=== PATIENT | male | born 1960 | race Caucasian/White ===

== ENCOUNTER 2021-07-08 11:43 | Emergency (ER) | payer BC ==
[2021-07-09 16:52] LABS: SARS-CoV-2 PCR by NAA Not Detected (NotDetected)
== END 2021-07-08 13:22 | disposition home or self-care (01) ==
LOC: MADERS 11:43
DX: J02.9 Acute pharyngitis, unspecified (principal); J30.2 Other seasonal allergic rhinitis; F17.220 Nicotine dependence, chewing tobacco, uncomplicated; Z79.899 Other long term (current) drug therapy
CPT/HCPCS: 87081; 87430; 99283; U0003; U0005

== ENCOUNTER 2021-10-16 17:33 | Emergency (ER) | payer BC, SELFPAY ==
[2021-10-16] MEDS ORDERED: predniSONE 20 MG TAB ONE (18:32)
[2021-10-16] MEDS ORDERED: guaiFENesin/Codeine Phosphate 100 mg/10 mg 5 ml UD Cup ONE (18:32)
[2021-10-16] MEDS ORDERED: Azithromycin 250 MG TAB ONE (18:32)
[2021-10-17 18:30] LABS: SARS-CoV-2 PCR by NAA DETECTED (NotDetected)
== END 2021-10-16 19:19 | disposition home or self-care (01) ==
LOC: MADERS 17:33
DX: U07.1 COVID-19 (principal); J44.1 Chronic obstructive pulmonary disease with (acute) exacerbation; F17.220 Nicotine dependence, chewing tobacco, uncomplicated
CPT/HCPCS: 71045; J7512; U0003; U0005

== ENCOUNTER 2022-10-12 13:14 | Emergency (ER) | payer SELFPAY ==
[2022-10-12] MEDS ORDERED: Dexamethasone 4 MG TAB ONE (13:47)
== END 2022-10-12 14:19 | disposition home or self-care (01) ==
LOC: MADERS 13:14
DX: J06.9 Acute upper respiratory infection, unspecified (principal); Z20.822 Contact with and (suspected) exposure to COVID-19; Z87.891 Personal history of nicotine dependence
CPT/HCPCS: 87081; 87430; 87804; 99283; J8540; U0003; U0005

== ENCOUNTER 2023-08-11 14:22 | Emergency (ER) | payer BC ==
[2023-08-11] MEDS ORDERED: Azithromycin 250 MG TAB ONE (15:03)
== END 2023-08-11 15:11 | disposition home or self-care (01) ==
LOC: MADERS 14:22
DX: J10.1 Influenza due to other identified influenza virus with other respiratory manifestations (principal); J18.9 Pneumonia, unspecified organism; F17.220 Nicotine dependence, chewing tobacco, uncomplicated; Z20.822 Contact with and (suspected) exposure to COVID-19
CPT/HCPCS: 71045; 87635; 87804

== ENCOUNTER 2024-07-20 18:27 | Emergency (ER) | payer BC ==
[2024-07-20] MEDS ORDERED: Acetaminophen 500 MG TAB ONE (19:21)
[2024-07-20] MEDS ORDERED: HYDROcodone/Acetaminophen 5/325 mg Tablet ONE ×2 (19:29→20:45)
== END 2024-07-20 20:55 | disposition home or self-care (01) ==
LOC: MADERS 18:27
DX: S90.31XA Contusion of right foot, initial encounter (principal); Z87.891 Personal history of nicotine dependence; W24.0XXA Contact with lifting devices, not elsewhere classified, initial encounter
CPT/HCPCS: 99283

== ENCOUNTER 2025-01-19 12:38 | Outpatient (CLI) | payer BC | END 2025-01-19 12:39 | disposition home or self-care (01) | LOC: MADRAD 12:38 | PROVIDERS: ATTEND Otolaryngology Otolaryngic Allergy | DX: Z01.818 Encounter for other preprocedural examination (principal); Z98.1 Arthrodesis status | CPT/HCPCS: 70360; 71046 ==